=== PATIENT | male | born 1980 | race Caucasian/White ===

== ENCOUNTER 2017-10-14 15:58 | Emergency (ER) | payer SELFPAY ==
[~2017-10-14] VITALS: Ht 182.9 cm; Wt 80.0 kg
[~2017-10-14 15:58] MED LIST: ALBU6.7H INH; LEVO.15 PO
[2017-10-14 16:02] VITALS: BP 145/85; PULSE 84; RESP 16; TEMP 98.5; O2SAT 98
[2017-10-14] MEDS ORDERED: LEVO.125 PO (16:08)
[2017-10-14] MEDS ORDERED: ALBU6.7H INH ×2 (16:08→16:14)
--- NOTE | 2017-10-14 16:08 | PD ---
HPI Chief Complaint: Medication Refill Request Time Seen by Provider: 16:05 Travel History International Travel<30 days: No Contact w/Intl Traveler<30days: No Traveled to known affect area: No History of Present Illness HPI 37-year-old male, with history of asthma, presents to the emergency department requesting a refill on his albuterol inhaler. He ran out last night. He denies chest tightness, chest pain, shortness of breath, wheezing. Has no other medical complaints. Symptoms are mild in severity. No known aggravating or relieving factors. Onset unknown. Duration chronic. No primary care provider. No known allergies. History of asthma and hypothyroidism. No other modifying factors or associated signs and symptoms. PFSH Past Medical History Asthma: Yes Respiratory: Yes (ASTHMA) Thyroid Disease: Yes Social History Alcohol Use: No Tobacco Use: No Substance Use: No Allergies-Medications (Allergen,Severity, Reaction): Coded Allergies: No Known Allergies (Unverified , 07/19/15) Reported Meds & Prescriptions Reported Meds & Active Scripts Active Proventil Hfa 6.7 GM Inh (Albuterol Sulfate) 90 Mcg/Act Aer 2 Puff INH Q4-6H PRN Reported Synthroid (Levothyroxine Sodium) 125 Mcg Tab 125 Mcg PO DAILY Proventil Hfa 6.7 GM Inh (Albuterol Sulfate) 90 Mcg/Act Aer 2 Puff INH BID PRN Review of Systems Except as stated in HPI: all other systems reviewed are Neg Physical Exam Narrative GENERAL: Well-nourished, well-developed patient, in no acute distress SKIN: Warm and dry. HEAD: Atraumatic. Normocephalic. EYES: Pupils equal and round. No scleral icterus. No injection or drainage. ENT: Mucosa pink and moist. Airway patent. NECK: Trachea midline. CARDIOVASCULAR: Regular rate and rhythm. No murmur appreciated. RESPIRATORY: No accessory muscle use. Lung sounds clear and equal bilaterally. No retractions or tachypnea. No audible wheezing per GASTROINTESTINAL: Flat. MUSCULOSKELETAL: No obvious deformities. No clubbing. No cyanosis. No edema. NEUROLOGICAL: Awake and alert. Oriented 3. No obvious cranial nerve deficits. Motor grossly within normal limits. Normal speech. PSYCHIATRIC: Appropriate mood and affect; insight and judgment normal. Data Data Last Documented VS Vital Signs Date Time Temp Pulse Resp B/P (MAP) Pulse Ox O2 Delivery O2 Flow Rate FiO2 10/14/17 16:02 98.5 84 16 145/85 (105) 98 Orders Orders Ed Discharge Order (10/14/17 16:14) MDM Medical Decision Making Medical Screen Exam Complete: Yes Emergency Medical Condition: Yes Medical Record Reviewed: Yes Differential Diagnosis Asthma exacerbation, asthma, medication refill Narrative Course 37-year-old male with history of asthma requesting albuterol inhaler refill. He ran out last night. No current symptoms of asthma exacerbation. Albuterol inhaler prescribed for home. Patient provided information for [facility] for follow-up. Instructed patient to follow up with primary care provider. Patient verbalizes understanding and agreement with treatment plan. Patient is medically cleared and stable for discharge. Discussed reasons to return to the emergency department. Patient agrees with treatment plan. The patients vital signs are stable and the patient is stable for outpatient follow- up and treatment. Patient discharged home, stable and in no acute distress. Diagnosis Primary Impression: Medication refill Referrals: [facility] Primary Care Physician Patient Instructions: General Instructions, Medication Refill, ED Additional Instructions: Follow-up with primary care provider [facility] Return to the emergency department immediately with worsening symptoms Med/Other Pt SpecificInfo: Prescription(s) given Scripts Albuterol 6.7 GM Inh (Proventil Hfa 6.7 GM Inh) 90 Mcg/Act Aer 2 PUFF INH Q4-6H Y for SOB/WHEEZING, #1 INHALER 0 Refills Prov: Karen Schofield 10/14/17 Disposition: 01 DISCHARGE HOME Condition: Stable Karen Schofield Oct 14, 2017 16:08
== END 2017-10-14 16:27 | disposition home or self-care (01) ==
LOC: NEPK 15:58
DX: Z76.0 Encounter for issue of repeat prescription (principal); J45.909 Unspecified asthma, uncomplicated; E03.9 Hypothyroidism, unspecified
CPT/HCPCS: 99281